=== PATIENT | male | born 1945 | race African-American/Black ===

== ENCOUNTER 2016-06-07 01:33 | Emergency (ER) | payer MEDICARE, OTHER ==
[~2016-06-07] VITALS: Ht 185.4 cm; Wt 108.9 kg
[2016-06-07 01:52] VITALS: BP 167/77
[2016-06-07] MEDS ORDERED: LIDOCAINE 1% / SOD BICARB 8.4% 20 ML VIAL. IJ ONE (01:59)
[2016-06-07] MEDS ORDERED: AMOX1TAB61 PO (02:14)
--- NOTE | 2016-06-07 02:15 | PHYS DOC ---
Past Medical History Past Medical History: Diabetes-Type II Additional Past Medical Histor: "BIRD SHIT DISEASE"; AGENT ORANGE POISONING Past Surgical History: Cholecystectomy Additional Past Surgical Histo: LEFT KNEE, LUNG SURGERY Alcohol Use: None Drug Use: None Adult General Chief Complaint Chief Complaint: HAND PROBLEM HPI HPI Patient is a 71 year old gentleman who presents to the ER today secondary to a fishhook getting stuck in his right thumb right around his fingernail. Patient reports she was trying it on his own was unable to so he finally after approximately 3 hours came to the ER for assistance. Patient is a diabetic. Patient's tetanus is up-to-date. Patient has any other symptoms or concerns. Physical exam is significant for a fishhook that is embedded in his right thumb right at the entrance laterally of the finger nail bed. There is no evidence of infection at this time. There is no erythema purulence edema or swelling. Patient's hospital course was significant for removal of the fishhook from his thumb. Patient's thumb was anesthetized with 0.5 mL of buffered lidocaine. [place] was grasped and was pulled through the skin without any focal T or complications. Wound was irrigated and cleansed in the ED with Betadine. A/P #1 fishhook to thumb. This is removed in the ER. I discussed with the patient the high risk for infection and that he will need to keep a close eye and it. Patient was instructed to take Augmentin 3 times a day for the next 7 days. Patient was advised that he needs a wound check within 48 hours by his private care physician or the ER for reevaluation to assure no infection. Patient understands my concerns and appears to be very reliable. Review of Systems Review of Systems Constitutional: Denies fever or chills [] Eyes: Denies change in visual acuity, redness, or eye pain [] All other review systems are negative except as documented in the history of present illness portion Current Medications Current Medications Current Medications Medications (Trade) Dose Ordered Sig/Eb Start Time Stop Time Status Last Admin Dose Admin Lidocaine/Sodium Bicarbonate (Buffered Lidocaine 1%) 20 ml STK-MED ONCE 06/07/16 01:59 06/07/16 02:00 DC Physical Exam Physical Exam Constitutional: Well developed, well nourished, no acute distress, non-toxic appearance. [] HENT: Normocephalic, atraumatic, bilateral external ears normal, oropharynx moist, no oral exudates, nose normal. [] Extremities: See above Neurologic: Alert and oriented X 3, normal motor function, normal sensory function, no focal deficits noted. [] Psychologic: Affect normal, judgement normal, mood normal. [] Current Patient Data Vital Signs Vital Signs Date Time Temp Pulse Resp B/P Pulse Ox O2 Delivery O2 Flow Rate FiO2 06/07/16 01:52 97.8 98 20 98 Room Air 97.8 EKG EKG [] Radiology/Procedures Radiology/Procedures [] Removal of fishhook from right thumb. He see above for procedure note. Course & Med Decision Making Course & Med Decision Making Pertinent Labs and Imaging studies reviewed. (See chart for details) [] Dragon Disclaimer Dragon Disclaimer This electronic medical record was generated, in whole or in part, using a voice recognition dictation system. Departure Departure Impression: Primary Impression: [place] injury to finger Disposition: 01 HOME, SELF-CARE Condition: IMPROVED Referrals: UNKNOWN PCP NAME (PCP) Please follow up with your family doctor in 2 days for a wound check.If you are unable to please return to the ER for a wound check in 2 days.You are a diabetic and her at very high risk for infection Patient Instructions: Fish Hook Removal, Wound Care, [id number] Scripts Amoxicillin/Potassium Clav (Augmentin 875-125 Tablet)1 Each Tablet1 Tab PO BID # 14 TAB Prov:LIZET FRANKEL MD 06/07/16 LIZET FRANKEL MD Jun 07, 2016 02:15
[2016-06-07] MEDS ORDERED: CEFAZOLIN IM 1 GM VIAL. IM ONE (03:00)
== END 2016-06-07 03:48 | disposition home or self-care (01) ==
LOC: ER 01:33
DX: S69.91XA Unspecified injury of right wrist, hand and finger(s), initial encounter (principal); E11.9 Type 2 diabetes mellitus without complications; W45.8XXA Other foreign body or object entering through skin, initial encounter; Y93.89 Activity, other specified; Y92.89 Other specified places as the place of occurrence of the external cause; Y99.8 Other external cause status
CPT/HCPCS: 96372; 99284; J0690